=== PATIENT | female | born 1990 | race Hispanic/Latino ===

== ENCOUNTER 2018-10-18 06:07 | Emergency (ER) | payer BC ==
[~2018-10-18] VITALS: Ht 157.5 cm; Wt 89.8 kg
--- OUTSIDE RECORDS SUMMARY | 2018-10-18 06:10 | XMS REPORT | Summary of Care ---
Author Author [facility] Care [facility] Organization [facility] Address Unknown Phone Unavailable Care Team Providers Care Director Of Sustainability Name Role Phone Gabriela Freed PCP Encounter [facility] Lucretia[facility] [phone] Date(s): 09/27/18 - 09/27/18 [facility] [place] [address] [facility] [address] [place] [address]- [phone] Discharge Disposition: Home or Self Care Attending Physician: Gabriela Freed MD Vital Signs Most recent to 1 oldest [Reference Range]: Height 162.56 cm (09/27/18 2:43 PM) Temperature Oral 98.0 DegF [96.4-99.1 DegF] (09/27/18 2:43 PM) Blood Pressure 116/83 mmHg [90-140/60-90 mmHg] (09/27/18 2:43 PM) Peripheral Pulse 84 bpm Rate [60-100 bpm] (09/27/18 2:43 PM) Weight 91.364 kg (09/27/18 2:43 PM) Body Mass Index 34.57 m2 (09/27/18 2:43 PM) Problem List Condition Effective Dates Status Health Status Informant Hyperlipidemia(Confi Active rmed) Miscarriage(Confirme < 10/28/14 Resolved d) Morbid Active obesity(Confirmed) Prediabetes(Confirme Active d) Allergies, Adverse Reactions, Alerts Substance Reaction Severity Status NKDA Active Latex Active Medications ibuprofen 600 mg oral tablet 600 mg=1 tab, PO, TID, X 10 day, # 30 tab, 0 Refill(s), Pharmacy: [place] [id number] Start Date: 09/27/18 Stop Date: 10/07/18 Status: Ordered silver sulfADIAZINE topical 1% cream 1 appl, TOP, BID, Apply to affected areas-blister, X 7 day, # 20 gm, 0 Refill(s) , Pharmacy: [place] [id number] Start Date: 09/27/18 Stop Date: 10/04/18 Status: Ordered Results No data available for this section Immunizations Given and Recorded Vaccine Date Status Refusal Reason influenza virus vaccine, inactivated1 03/20/18 Given 1Result Comment: Patient was monitored for 15 mins after administration, no reaction was noted Procedures Procedure Date Related Diagnosis Body Site Status Appendectomy Completed Social History Social History Type Response Substance Abuse Use: None. Alcohol Current, Type Beer, Liquor. Frequency: 1-2 times per month. Smoking Status Never smoker; Lives with someone who smokes; Cigarette Smoking Last 365 Days No; Reg Smoking Cessation Counseling No entered on: 09/27/18 Assessment and Plan No data available for this section
--- OUTSIDE RECORDS SUMMARY | 2018-10-18 06:10 | XMS REPORT | Continuity of Care Document ---
Author Author [facility] Interface Address Unknown Phone Unavailable Problems Problem Status Onset Date Classification Date Reported Comments Source Discharge Diagnosis: Acute urinary tract infection 02/28/2016 03/02/2016 [facility] VAGINAL BLEEDING OUTSIDE OF MENSTRUAL CY Active 02/28/2016 [facility] Miscarriage Resolved 10/28/2014 Problem 10/07/2018 [facility] Hyperlipidemia Active Problem 10/07/2018 [facility] Morbid obesity Active Problem 10/07/2018 [facility] Prediabetes Active Problem 10/07/2018 [facility] Medications Medication Details Route Status Patient Instructions Ordering Provider Order Date Source Silver Sulfadiazine 10 MG/ML Topical Cream 1 appl, TOP, BID, Apply to affected areas-blister, X 7 day, # 20 gm, 0 Refill(s), Pharmacy: [place] [id number] Active 09/27/2018 [facility] ibuprofen 600 mg oral tablet 600 mg=1 tab, PO, TID, X 10 day, # 30 tab, 0 Refill(s), Pharmacy: [place] [id number] Active 09/27/2018 [facility] benzonatate 100 MG Oral Capsule [Tessalon Perles] 100 mg=1 cap, PO, TID, X 7 day, # 21 cap, 0 Refill(s), Pharmacy: [place] [id number] Active 08/15/2018 [facility] Brompheniramine Maleate 0.4 MG/ML / Dextromethorphan Hydrobromide 2 MG/ML / Pseudoephedrine Hydrochloride 6 MG/ML Oral Solution [Bromfed DM] 5 mL, PO, Q4H, PRN cough, X 8 day, # 240 mL, 0 Refill(s), Pharmacy: [place] [id number] Active 08/15/2018 [facility] Oseltamivir 75 MG Oral Capsule [Tamiflu] 75 mg, PO, Q12H, X 5 day, # 10 cap, 0 Refill(s), Pharmacy: [place] [id number] Active 08/15/2018 [facility] tramadol hydrochloride 50 MG Oral Tablet [Ultram] 50 mg=1 tab, PO, Q4H, PRN pain, X 3 day, # 20 tab, 0 Refill(s) Active 02/28/2016 [facility] Cephalexin 500 MG Oral Capsule [Keflex] 500 mg=1 cap, PO, BID, X 7 day, # 14 cap, 0 Refill(s) Active 02/28/2016 [facility] Rocephin 1 gm, Route: IVPB, ONCE, Dosing Weight 84.545, kg, Priority: STAT, Start date: 02/28/16 17:15:00 CDT, Stop date: 02/28/16 17:15:00 CDTNotes: (Same As: Rocephin). Use with 100 mL NS and infuse over 30 m in MEDICATION WASTE Product Size: 1000 mg Product Wasted: ___ mg Inactive 02/28/2016 [facility] Allergies, Adverse Reactions, Alerts Substance Category Reaction Severity Reaction type Status Date Reported Comments Source Latex Assertion Drug allergy Active [facility] Immunizations Immunization Date Given Site Status Last Updated Comments Source influenza virus vaccine, inactivated<sup>1</sup> 03/20/2018 Right Deltoid completed Yen Result Comment: Patient was monitored for 15 mins after administration, no reaction was noted [facility] Results Order Name Results Value Reference Range Date Interpretation Comments Source URINE AND STOOL UA Mucus Few /LPF None Seen /LPF 02/28/2016 [facility] URINE AND STOOL UA Bacteria Few /HPF None Seen /HPF 02/28/2016 [facility] URINE AND STOOL UA RBC 21-50 /HPF 0 - 2 02/28/2016 [facility] URINE AND STOOL UA WBC 3-5 /HPF None Seen /HPF 02/28/2016 [facility] URINE AND STOOL Micro? Performed (02/28/16 4:26 PM) 02/28/2016 [facility] URINE AND STOOL UA Leuk Est Small *ABN* (02/28/16 4:26 PM) Negative 02/28/2016 [facility] URINE AND STOOL UA Sq Epi Occasional /LPF Few /LPF 02/28/2016 [facility] URINE AND STOOL UA pH 6.5 5.0 - 8.0 02/28/2016 [facility] URINE AND STOOL UA Color Red *ABN* (02/28/16 4:26 PM) Yellow 02/28/2016 [facility] URINE AND STOOL UA Turbidity Cloudy *ABN* (02/28/16 4:26 PM) Clear 02/28/2016 [facility] URINE AND STOOL UA Protein >=300 mg/dL Negative mg/dL 02/28/2016 [facility] URINE AND STOOL UA Spec Grav 1.025 <=1.030 02/28/2016 [facility] URINE AND STOOL UA Blood Large *ABN* (02/28/16 4:26 PM) Negative 02/28/2016 [facility] URINE AND STOOL UA Bili Moderate *ABN* (02/28/16 4:26 PM) Negative 02/28/2016 [facility] URINE AND STOOL UA Ketones Trace *ABN* (02/28/16 4:26 PM) Negative 02/28/2016 [facility] URINE AND STOOL UA Glucose Negative (02/28/16 4:26 PM) Negative 02/28/2016 [facility] URINE AND STOOL UA Nitrite Positive *ABN* (02/28/16 4:26 PM) Negative 02/28/2016 [facility] URINE AND STOOL UA Urobilinogen 4.0 EU/dL 0.1 - 1.0 02/28/2016 [facility] ELECTROLYTES AGAP 12.4 meq/L 10.0 - 20.0 02/28/2016 [facility] ELECTROLYTES eGFR 110 mL/min/1.73m2 02/28/2016 Result Comment: The eGFR is calculated using the CKD-EPI formula. In most young, healthy individuals the eGFR will be >90 mL/min/1.73m2. The eGFR declines with age. An eGFR of 60-89 may be normal in some populations, particularly the elderly, for whom the CKD-EPI formula has not been extensively validated. Use of the eGFR is not recommended in the following populations: Individuals with unstable creatinine concentrations, including patients and those with serious co-morbid conditions. Patients with extremes in muscle mass or diet. The data above are obtained from the National Kidney Disease Education Program (NKDEP) which additionally recommends that when the eGFR is used in patients with extremes of body mass index for purposes of drug dosing, the eGFR should be multiplied by the estimated BMI. [facility] ELECTROLYTES Potassium Lvl 3.4 meq/L 3.5 - 5.1 02/28/2016 [facility] ELECTROLYTES Sodium Lvl 139 meq/L 135 - 145 02/28/2016 [facility] ELECTROLYTES CO2 25 meq/L 24 - 32 02/28/2016 [facility] ELECTROLYTES Chloride Lvl 105 meq/L 95 - 109 02/28/2016 [facility] ELECTROLYTES Calcium Lvl 9.5 mg/dL 8.5 - 10.5 02/28/2016 [facility] ELECTROLYTES Glucose Lvl 80 mg/dL 70 - 99 02/28/2016 [facility] ELECTROLYTES Creatinine Lvl 0.76 mg/dL 0.50 - 1.40 02/28/2016 [facility] ELECTROLYTES BUN 7 mg/dL 7 - 22 02/28/2016 [facility] ENDOCRINOLOGY hCG Tot null 02/28/2016 [facility] HEMATOLOGY RBC 5.48 M/CMM 4.20 - 5.40 02/28/2016 [facility] HEMATOLOGY WBC 14.1 K/CMM 3.7 - 10.4 02/28/2016 [facility] HEMATOLOGY MCV 79.4 fL 80.0 - 98.0 02/28/2016 [facility] HEMATOLOGY MCH 26.6 pg 27.0 - 31.0 02/28/2016 [facility] HEMATOLOGY MCHC 33.6 g/dL 32.0 - 36.0 02/28/2016 [facility] HEMATOLOGY Hgb 14.6 g/dL 12.0 - 16.0 02/28/2016 [facility] HEMATOLOGY Platelet 347 K/CMM 133 - 450 02/28/2016 [facility] HEMATOLOGY RDW 13.8 % 11.5 - 14.5 02/28/2016 [facility] HEMATOLOGY Hct 43.5 % 36.0 - 48.0 02/28/2016 [facility] HEMATOLOGY MPV 7.9 fL 7.4 - 10.4 02/28/2016 [facility] HEMATOLOGY Basophils # 0.2 K/CMM 0.0 - 0.2 02/28/2016 [facility] HEMATOLOGY Monocytes 5.1 % 2.0 - 12.0 02/28/2016 [facility] HEMATOLOGY Lymphocytes 27.6 % 20.0 - 40.0 02/28/2016 [facility] HEMATOLOGY Eosinophils 1.0 % 0.0 - 4.0 02/28/2016 [facility] HEMATOLOGY Segs 65.0 % 45.0 - 75.0 02/28/2016 [facility] HEMATOLOGY Segs-Bands # 9.2 K/CMM 1.5 - 8.1 02/28/2016 [facility] HEMATOLOGY Monocytes # 0.7 K/CMM 0.0 - 0.8 02/28/2016 [facility] HEMATOLOGY Eosinophils # 0.1 K/CMM 0.0 - 0.5 02/28/2016 [facility] HEMATOLOGY Basophils 1.3 % 0.0 - 1.0 02/28/2016 [facility] HEMATOLOGY Lymphocytes # 3.9 K/CMM 1.0 - 5.5 02/28/2016 [facility] Pelvis w Transvag and Pelvis Doppler US Pelvis w Transvag and Pelvis Doppler US Patient Name: JEN CALLAWAY : 1990; Age: 25 years y/o Female MR: [id number] Study: Pelvis w Transvag and Pelvis Doppler US 02/28/2016 4:23 PM CDT Ordering Physician: Clinical Indication: Abdominal pain, acute; suprapubic pain, vaginal bleeding Comparison: None Transabdominal and transvaginal pelvic ultrasound exam: Transabdominal study is limited. Uterus and ovaries are not well seen. Transvaginal study demonstrates uterus of 8 x 4 x 6 cm. Endometrial thickness is approximately 7 mm. No intrauterine gestational sac is confirmed. There is a subendometrial cystic structure within the lower uterine segment measuring 4 x 6 mm. No pole or yolk sac is identified. Right ovary 2.2 x 2.7 x 3.6 cm appearing normal Left ovary 3 x 2.4 x 3.1 cm. 2 x 2.3 x 2.6 cm simple cyst left ovary. No other adnexal mass or pathologic fluid. Normal arterial and venous vascular flow is demonstrated within bilateral ovarian parenchyma on spectral Doppler imaging. IMPRESSION: No intrauterine gestation is confirmed. Small subendometrial cyst within the lower uterine segment. 2.6 cm simple cyst left ovary. Normal arterial and venous Doppler flow noted within bilateral ovarian parenchyma. SL: MELINDA 02/28/2016 - - Read by: Avinash Albarran MD Dictated Date/time: 02/28/16 18:12 Electronically Signed by: Avinash Albarran MD 02/28/16 18:15 FINAL REPORT [facility] Vital Signs Vital Sign Value Date Comments Source Weight 91.364 09/27/2018 [facility] Height 162.56 cm 09/27/2018 [facility] BMI Calculated 34.57 09/27/2018 [facility] Systolic (mm Hg) 116 09/27/2018 [facility] Diastolic (mm Hg) 83 09/27/2018 [facility] Heart Rate 84 09/27/2018 [facility] Temperature Oral (F) 98.0 F 09/27/2018 [facility] Height 162.56 cm 08/15/2018 [facility] Weight 91.875 08/15/2018 [facility] BMI Calculated 34.77 08/15/2018 [facility] Temperature Oral (F) 98.0 F 08/15/2018 [facility] Heart Rate 57 08/15/2018 [facility] Systolic (mm Hg) 128 08/15/2018 [facility] Diastolic (mm Hg) 85 08/15/2018 [facility] Weight 95 03/20/2018 [facility] BMI Calculated 35.95 03/20/2018 [facility] Height 162.56 cm 03/20/2018 [facility] Heart Rate 68 03/20/2018 [facility] Temperature Oral (F) 96.6 F 03/20/2018 [facility] Systolic (mm Hg) 144 03/20/2018 [facility] Diastolic (mm Hg) 87 03/20/2018 [facility] Systolic (mm Hg) 133 02/29/2016 [facility] Diastolic (mm Hg) 87 02/29/2016 [facility] Temperature Oral (F) 98.3 F 02/29/2016 [facility] Heart Rate 76 02/29/2016 [facility] Respitory Rate 18 02/29/2016 [facility] BMI Calculated 34.09 02/28/2016 [facility] Height 157.48 cm 02/28/2016 [facility] Temperature Oral (F) 98.4 F 02/28/2016 [facility] Weight 84.545 02/28/2016 [facility] Systolic (mm Hg) 138 02/28/2016 [facility] Diastolic (mm Hg) 100 02/28/2016 [facility] Heart Rate 98 02/28/2016 [facility] Respitory Rate 16 02/28/2016 [facility] Encounters Location Location Details Encounter Type Encounter Number Reason For Visit Attending Provider ADM Date DC Date Status Source [facility] Emergency [id number] Alan Nicolas 02/28/2016 02/29/2016 [facility] Outpatient [id number] RIYA FREED 03/20/2018 Active [facility] [place] Outpatient [id number] Riya Freed 03/20/2018 03/21/2018 [facility] Outpatient [id number] RIYA BOBOILLA 04/04/2018 Active [facility] Outpatient [id number] RIYAPastora BOBOLOURDES 04/05/2018 Active [facility] Outpatient [id number] RIYAPastora BOBOLOURDES 04/07/2018 Active [facility] Outpatient [id number] RIYAPastora BOBOLOURDES 05/23/2018 Active [facility] Outpatient [id number] RIYAPastora BOBOLOURDES 08/15/2018 Active [facility] Outpatient [id number] Riya Freed 08/15/2018 08/16/2018 [facility] Outpatient [id number] Riya Lourdes 09/27/2018 Active [facility] [place] Outpatient [id number] Riya Freed 09/27/2018 09/28/2018 [facility] Procedures Procedure Code Date Perfomer Comments Source Appendectomy [id number] [facility] Appendectomy [id number] [facility]
--- OUTSIDE RECORDS SUMMARY | 2018-10-18 06:10 | XMS REPORT | Summary of Care ---
Author Author [facility] Organization [facility] Address Unknown Phone Unavailable Encounter SHELDON Boykin(BEULAH) [id number] Date(s): 02/28/16 - 02/28/16 [facility] [address] [place] [address]- Discharge Diagnosis: Acute urinary tract infection Discharge Disposition: Home or Self Care Attending Physician: Alan Valenzuela MD Vital Signs Most recent to 1 2 oldest [Reference Range]: Height 157.48 cm (02/28/16 2:44 PM) Temperature Oral 98.3 DegF 98.4 DegF [96.4-99.1 DegF] (02/28/16 7:01 PM) (02/28/16 2:44 PM) Blood Pressure 133/87 mmHg 138/100 mmHg [90-140/60-90 mmHg] (02/28/16 7:01 PM) (02/28/16 2:44 PM) Respiratory Rate 18 BRMIN 16 BRMIN [14-20 BRMIN] (02/28/16 7:01 PM) (02/28/16 2:44 PM) Peripheral Pulse 76 bpm 98 bpm Rate [60-100 bpm] (02/28/16 7:01 PM) (02/28/16 2:44 PM) Weight 84.545 kg (02/28/16 2:44 PM) Body Mass Index 34.09 m2 (02/28/16 2:44 PM) Problem List No data available for this section Allergies, Adverse Reactions, Alerts Substance Reaction Severity Status NKDA Active Medications Keflex 500 mg oral capsule 500 mg=1 cap, PO, BID, X 7 day, # 14 cap, 0 Refill(s) Start Date: 02/28/16 Stop Date: 03/06/16 Status: Ordered Rocephin + sodium chloride 0.9% INJ 100 mL 1 gm, Route: IVPB, ONCE, Dosing Weight 84.545, kg, Priority: STAT, Start date: 0 02/28/16 17:15:00 CDT, Stop date: 02/28/16 17:15:00 CDT Notes: (Same As: Rocephin).Use with 100 mL NS and infuse over 30 min MEDICA TION WASTE Product Size: 1000 mgProduct Wasted: ___ mg Start Date: 02/28/16 Stop Date: 02/28/16 Status: Completed Ultram 50 mg oral tablet 50 mg=1 tab, PO, Q4H, PRN pain, X 3 day, # 20 tab, 0 Refill(s) Start Date: 02/28/16 Stop Date: 03/02/16 Status: Ordered Results ELECTROLYTES Most recent to 1 oldest [Reference Range]: Sodium Lvl [135-145 139 mEq/L mEq/L] (02/28/16 3:49 PM) Potassium Lvl 3.4 mEq/L [3.5-5.1 mEq/L] *LOW* (02/28/16 3:49 PM) Chloride Lvl [95-109 105 mEq/L mEq/L] (02/28/16 3:49 PM) CO2 [24-32 mEq/L] 25 mEq/L (02/28/16 3:49 PM) AGAP [10.0-20.0 12.4 mEq/L mEq/L] (02/28/16 3:49 PM) CHEM PANEL Most recent to 1 oldest [Reference Range]: Creatinine Lvl 0.76 mg/dL [0.50-1.40 mg/dL] (02/28/16 3:49 PM) eGFR 110 mL/min/1.73m2 1 *NA* (02/28/16 3:49 PM) BUN [7-22 mg/dL] 7 mg/dL (02/28/16 3:49 PM) Glucose Lvl [70-99 80 mg/dL mg/dL] (02/28/16 3:49 PM) Calcium Lvl 9.5 mg/dL [8.5-10.5 mg/dL] (02/28/16 3:49 PM) 1Result Comment: The eGFR is calculated using the [...] from the National Kidney Disease Education Program ( NKDEP) which additionally recommends that when the eGFR is used in patients with extremes of body mass index for purposes of drug dosing, the eGFR should be mul tiplied by the estimated BMI. ENDOCRINOLOGY Most recent to 1 oldest [Reference Range]: hCG Tot <1 mIU/mL *NA* (02/28/16 3:49 PM) URINE AND STOOL Most recent to 1 oldest [Reference Range]: UA Turbidity [Clear] Cloudy *ABN* (02/28/16 4:26 PM) UA Color [Yellow] Red *ABN* (02/28/16 4:26 PM) UA pH [5.0-8.0] 6.5 (02/28/16 4:26 PM) UA Spec Grav 1.025 [<=1.030] (02/28/16 4:26 PM) UA Glucose Negative [Negative] (02/28/16 4:26 PM) UA Blood [Negative] Large *ABN* (02/28/16 4:26 PM) UA Ketones Trace [Negative] *ABN* (02/28/16 4:26 PM) UA Protein [Negative >=300 mg/dL mg/dL] *ABN* (02/28/16 4:26 PM) UA Urobilinogen 4.0 EU/dL [0.1-1.0 EU/dL] *HI* (02/28/16 4:26 PM) UA Bili [Negative] Moderate *ABN* (02/28/16 4:26 PM) UA Leuk Est Small [Negative] *ABN* (02/28/16 4:26 PM) UA Nitrite Positive [Negative] *ABN* (02/28/16 4:26 PM) UA WBC [None Seen 3-5 /HPF /HPF] (02/28/16 4:26 PM) UA RBC [0-2 /HPF] 21-50 /HPF *ABN* (02/28/16 4:26 PM) UA Bacteria [None Few /HPF Seen /HPF] (02/28/16 4:26 PM) UA Sq Epi [Few /LPF] Occasional /LPF (02/28/16 4:26 PM) UA Mucus [None Seen Few /LPF /LPF] (02/28/16 4:26 PM) Micro? Performed (02/28/16 4:26 PM) HEMATOLOGY Most recent to 1 oldest [Reference Range]: WBC [3.7-10.4 K/CMM] 14.1 K/CMM *HI* (02/28/16 3:49 PM) RBC [4.20-5.40 5.48 M/CMM M/CMM] *HI* (02/28/16 3:49 PM) Hgb [12.0-16.0 g/dL] 14.6 g/dL (02/28/16 3:49 PM) Hct [36.0-48.0 %] 43.5 % (02/28/16 3:49 PM) MCV [80.0-98.0 fL] 79.4 fL *LOW* (02/28/16 3:49 PM) MCH [27.0-31.0 pg] 26.6 pg *LOW* (02/28/16 3:49 PM) MCHC [32.0-36.0 33.6 g/dL g/dL] (02/28/16 3:49 PM) RDW [11.5-14.5 %] 13.8 % (02/28/16 3:49 PM) Platelet [133-450 347 K/CMM K/CMM] (02/28/16 3:49 PM) MPV [7.4-10.4 fL] 7.9 fL (02/28/16 3:49 PM) Segs [45.0-75.0 %] 65.0 % (02/28/16 3:49 PM) Lymphocytes 27.6 % [20.0-40.0 %] (02/28/16 3:49 PM) Monocytes [2.0-12.0 5.1 % %] (02/28/16 3:49 PM) Eosinophils [0.0-4.0 1.0 % %] (02/28/16 3:49 PM) Basophils [0.0-1.0 1.3 % %] *HI* (02/28/16 3:49 PM) Segs-Bands # 9.2 K/CMM [1.5-8.1 K/CMM] *HI* (02/28/16 3:49 PM) Lymphocytes # 3.9 K/CMM [1.0-5.5 K/CMM] (02/28/16 3:49 PM) Monocytes # [0.0-0.8 0.7 K/CMM K/CMM] (02/28/16 3:49 PM) Eosinophils # 0.1 K/CMM [0.0-0.5 K/CMM] (02/28/16 3:49 PM) Basophils # [0.0-0.2 0.2 K/CMM K/CMM] (02/28/16 3:49 PM) Immunizations No data available for this section Procedures Procedure Date Related Diagnosis Body Site Appendectomy Social History Social History Type Response Smoking Status Never smoker; Exposure to Tobacco Smoke None; Cigarette Smoking Last 365 Days No; Reg Smoking Cessation Counseling No Assessment and Plan No data available for this section
--- OUTSIDE RECORDS SUMMARY | 2018-10-18 06:10 | XMS REPORT | Summary of Care ---
Author Author [facility] Primary [facility] Organization [facility] Address Unknown Phone Unavailable Encounter SHELDON Boykin(BEULAH) [id number] Date(s): 08/15/18 - 08/15/18 [facility] [address] [place] [phone] Discharge Disposition: Home or Self Care Attending Physician: Gabriela Freed MD Vital Signs Most recent to 1 oldest [Reference Range]: Height 162.56 cm (08/15/18 1:05 PM) Temperature Oral 98.0 DegF [96.4-99.1 DegF] (08/15/18 1:05 PM) Blood Pressure 128/85 mmHg [90-140/60-90 mmHg] (08/15/18 1:05 PM) Peripheral Pulse 57 bpm Rate [60-100 bpm] *LOW* (08/15/18 1:05 PM) Weight 91.875 kg (08/15/18 1:05 PM) Body Mass Index 34.77 m2 (08/15/18 1:05 PM) Problem List Condition Effective Dates Status Health Status Informant Hyperlipidemia(Confi Active rmed) Miscarriage(Confirme < / Resolved d) Morbid Active obesity(Confirmed) Prediabetes(Confirme Active d) Allergies, Adverse Reactions, Alerts Substance Reaction Severity Status NKDA Active Latex Active Medications Bromfed DM oral syrup 5 mL, PO, Q4H, PRN cough, X 8 day, # 240 mL, 0 Refill(s), Pharmacy: [place] [id number] Start Date: 08/15/18 Stop Date: 08/23/18 Status: Ordered TamiFLU 75 mg oral capsule 75 mg, PO, Q12H, X 5 day, # 10 cap, 0 Refill(s), Pharmacy: [place] [id number] Start Date: 08/15/18 Stop Date: 08/20/18 Status: Ordered Tessalon Perles 100 mg oral capsule 100 mg=1 cap, PO, TID, X 7 day, # 21 cap, 0 Refill(s), Pharmacy: [facility] Start Date: 08/15/18 Stop Date: 08/22/18 Status: Ordered Results No data available for [...] Reg Smoking Cessation Counseling No entered on: 08/15/18 Assessment and Plan No data available for this section
--- OUTSIDE RECORDS SUMMARY | 2018-10-18 06:10 | XMS REPORT | Summary of Care ---
Author Author [facility] Organization [facility] Address Unknown Phone Unavailable Care Team Providers Care De Icer Name Role Phone Gabriela Freed PCP Encounter HQ Lucretia([facility]) [phone] Date(s): 03/20/18 - 03/20/18 [place] [address] [facility] [address] [place] [address]- [phone] Discharge Disposition: Home or Self Care Attending Physician: Gabriela Freed MD Vital Signs Most recent to 1 oldest [Reference Range]: Height 162.56 cm (03/20/18 10:59 AM) Temperature Oral 96.6 DegF [96.4-99.1 DegF] (03/20/18 10:59 AM) Blood Pressure 144/87 mmHg [90-140/60-90 mmHg] *HI* (03/20/18 10:59 AM) Peripheral Pulse 68 bpm Rate [60-100 bpm] (03/20/18 10:59 AM) Weight 95 kg (03/20/18 10:59 AM) Body Mass Index 35.95 m2 (03/20/18 10:59 AM) Problem List Condition Effective Dates Status Health Status Informant Hyperlipidemia(Confi Active rmed) Miscarriage(Confirme < 10/28/14 Resolved d) Morbid Active obesity(Confirmed) Prediabetes(Confirme Active d) Allergies, Adverse Reactions, Alerts Substance Reaction Severity Status NKDA Active Latex Active Medications No Known Medications Results No data available for this section [...]
[2018-10-18] MEDS ORDERED: CYCLOBENZAPRINE HCL 10 MG TAB PO ONE (06:30)
[2018-10-18] MEDS ORDERED: HYDROCODONE/APAP 5MG-325MG TAB PO ONE ×2 (06:30→06:45)
[2018-10-18 09:06] VITALS: BP 144/82
--- NOTE | 2018-10-18 09:38 | Diagnostic Imaging Report ---
EXAM: US PELVIS OB <14 WEEKS-HOPD DATE: 10/18/2018 12:00 AM Time stamp on exam: 8:58 AM INDICATION: , fall COMPARISON: None TECHNIQUE: Transvaginal sonographic images of the pelvis were obtained using varela scale and color doppler. Transvaginal imaging was medically necessary to better evaluate the fetus. G 2P0A 0 MC 1 LMP 09/01/2018 Clinical gestational age: 6w5d (patient uncertain; approximate) FINDINGS: UTERUS: Size: 5.7 x 3.9 x 4.4 cm Endometrium: 0.8 cm Mass: None Cervix: Normal GESTATIONAL SAC: No intrauterine gestational sac is identified. YOLK SAC: Not visualized EMBRYO/FETUS: No embryo or pole. No intrauterine gestational sac is seen. RIGHT OVARY: 3.5 x 2.5 x 1.9 cm No abnormal cysts or masses. LEFT OVARY: Not visualized CUL-DE-SAC: No free fluid. IMPRESSION: No intrauterine gestation is seen. No adnexal mass or fluid collection seen. This represents a of uncertain location. Recommend correlation with beta hCG trend and follow-up ultrasound if indicated by clinical and laboratory findings. Signed by: Dr. Scott Hdz M.D. on 10/18/2018 9:34 AM
== END 2018-10-18 09:14 | disposition home or self-care (01) ==
LOC: FSED 06:07
DX: O20.0 Threatened abortion (principal); S70.02XA Contusion of left hip, initial encounter; S70.01XA Contusion of right hip, initial encounter; W18.2XXA Fall in (into) shower or empty bathtub, initial encounter; Y93.E1 Activity, personal bathing and showering; Y92.002 Bathroom of unspecified non-institutional (private) residence as the place of occurrence of the external cause
CPT/HCPCS: 36415; 76801; 80053; 81025; 84702; 85025; 99283